=== PATIENT | female | born 1975 | race African-American/Black ===

== ENCOUNTER → 2016-09-14 16:33 | Outpatient (CLI) | payer OTHER | END | disposition home or self-care (01) | LOC: D.MAMMO 11:15 | DX: Z12.31 Encounter for screening mammogram for malignant neoplasm of breast (principal) ==

== ENCOUNTER 2016-10-12 08:22 | Outpatient (CLI) | payer OTHER | END 2016-10-12 11:21 | LOC: D.MAMMO 08:22 | DX: R92.8 Other abnormal and inconclusive findings on diagnostic imaging of breast (principal) ==

== ENCOUNTER → 2018-09-17 18:28 | Outpatient (CLI) | payer BC | END | disposition home or self-care (01) | LOC: D.MAMMO 13:00 | PROVIDERS: ATTEND Emergency Medicine | DX: Z12.31 Encounter for screening mammogram for malignant neoplasm of breast (principal) ==

== ENCOUNTER → 2019-11-21 15:32 | Outpatient (CLI) | payer BC | END | disposition home or self-care (01) | LOC: D.MRI 15:32 | PROVIDERS: ATTEND Nurse Practitioner Family | DX: M25.562 Pain in left knee (principal) ==

== ENCOUNTER 2020-01-07 14:28 | Outpatient (CLI) | payer BC | END 2020-01-07 23:59 | disposition home or self-care (01) | LOC: D.MAMMO 14:28 | PROVIDERS: ATTEND Emergency Medicine | DX: Z12.31 Encounter for screening mammogram for malignant neoplasm of breast (principal) ==